=== PATIENT | male | born 1965 | race Caucasian/White ===

== ENCOUNTER 2017-07-29 19:49 | Inpatient (IN) ==
[2017-07-29] MEDS ORDERED: methylPREDNISolone SOD SUC 125 MG/2 ML VIAL ONE (20:04)
[2017-07-29] MEDS ORDERED: LORazepam 2 MG/1 ML VIAL ONE (20:04)
[2017-07-29] MEDS ORDERED: levETIRAcetam 500 MG/5 ML VIAL IV ONE (20:08)
[2017-07-29] MEDS ORDERED: LORazepam 2 MG/1 ML VIAL IV STA ×2 (20:08→20:20)
[2017-07-29] MEDS ORDERED: DIPH/TET/ACEL PERT BOOSTER VACCINE 0.5 ML VIAL IM ONE (20:08)
[2017-07-29] MEDS ORDERED: LACTATED RINGERS 500 ML IV STA (20:08)
[2017-07-29 20:25] LABS: Basophils # 0.1 10*3/uL (0.0-0.2); Basophils % 0.6 % (0.0-0.8); Eosinophils % 0.2 % (0.00-10.9); Hematocrit 40.9 VOL% (42.0-52.0); Hemoglobin 14.3 GM/DL (14.0-18.0); Immature Granulocytes % 1.4 %; Immature Granulocytes Absolute 0.12 #; Lymphocytes # 2.3 10*3/uL (1.4-4.0); Lymphocytes % 26.2 % (21.2-54.2); Mean Corpuscular Hemoglobin 30 PG (27-34); Mean Platelet Volume 9.7 FL (9.6-12.0); Monocytes # 0.4 10*3/uL (0.11-0.8); Monocytes % 4.1 % (1.7-12.7); Neutrophils # 5.9 10*3/uL (1.4-7.4); Neutrophils % 67.5 % (38.7-73.9); Platelet Count 294 T/CUMM (130-400); Red Blood Count 4.81 MC/CUMM (3.8-5.5); Red Cell Distribution Width 14.1 % (9.3-17.3); White Blood Count 8.7 T/CUMM (4-12)
[2017-07-29 20:32] LABS: PT Patient Result 10.2 SECS; Partial Thromboplastin Time 23.2 SECS (0-40)
[2017-07-29] MEDS ORDERED: methylPREDNISolone SOD SUC 125 MG/2 ML VIAL IV STA (20:35)
[2017-07-29 20:36] LABS: Albumin 4.3 G/DL (3.4-5.0); Bilirubin,Total 0.5 MG/DL (0.2-1.0); Calcium 8.9 MG/DL (8.5-10.1); Osmolality,Calculated 276.8 MOS/KG (273-304); Potassium 3.5 MMOL/L (3.5-5.1)
[2017-07-29] MEDS ORDERED: ceFAZolin 1,000 MG VIAL ONE (20:36)
[2017-07-29 20:38] LABS: Lactic Acid 2.8 MMOL/L (0.4-2.0)
[2017-07-29] MEDS ORDERED: HYDROmorphone 2 MG/1 ML VIAL ONE (20:55)
[2017-07-29 20:56] LABS: ABG Base Excess -0.1 MMOL/L (-2.5-2.5); ABG HCO3 23.8 MMOL/L (20-26); ABG Oxygen Saturation 97.6 % (95-100); ABG PCO2 36.4 MM HG (35-48); ABG PH 7.433 (7.35-7.45); ABG TCO2 24.9 MMOL/L (23-27); Allen Test Positive
[2017-07-29 21:21] LABS: Barbiturates Screen,Urine Negative (Negative); Benzodiazepines Screen,Urine Positive (Negative); Cannabinoid Screen,Urine Negative (Negative); Opiate Screen,Urine Negative (Negative); Phencyclidine Screen,Urine Negative (Negative)
[2017-07-29] MEDS ORDERED: HYDROmorphone 2 MG/1 ML VIAL IV STA (21:43)
[2017-07-29 22:18] LABS: Apearance,Urine CLEAR (Clear); Bilirubin,Urine Negative (Negative); Blood, Urine Moderate mg/dL (Negative); Glucose,Urine (UA) Negative (Negative); Ketones,Urine Negative (Negative); Mucus,Urine Occasional /LPF (Occasional); Nitrite,Urine Negative (Negative); Protein,Urine Negative; RBC,Urine 1 /HPF (0-4); Urine Color Straw (Yellow); Urine Urobilinogen < 2.0 EU/DL (0.2-1.0); WBC,Urine <1 /HPF (0-6)
[2017-07-29] MEDS ORDERED: HYDROmorphone 2 MG/1 ML VIAL IV PRN (23:12)
[2017-07-29] MEDS ORDERED: ACETAMINOPHEN 325 MG TABLET PO PRN (23:12)
[2017-07-29] MEDS ORDERED: ONDANSETRON 4 MG/2 ML VIAL IV PRN (23:12)
[2017-07-29] MEDS ORDERED: INFLUENZA VIRUS VACCINE 0.5 ML SYRINGE IM ONE (23:23)
[2017-07-29] MEDS: LACTATED RINGERS 1,000 ML IV SCH (23:28)
[2017-07-30] MEDS: oxyCODONE ER 20 MG TABLET PO SCH ×2 (00:30→13:10)
[2017-07-30] MEDS: ZALEPLON 5 MG CAPSULE PO SCH ×2 (00:30→21:52)
[2017-07-30] MEDS: ceFAZolin 1,000 MG in SYRINGE 1 EACH IV SCH ×3 (00:38→17:22)
[2017-07-30] MEDS ORDERED: LORazepam 2 MG/1 ML VIAL IV ONE (01:55)
[2017-07-30 07:50] LABS: Basophils % 0.1 % (0.0-0.8); Hematocrit 38.4 VOL% (42.0-52.0); Hemoglobin 13.7 GM/DL (14.0-18.0); Immature Granulocytes % 1.3 %; Immature Granulocytes Absolute 0.13 #; Lymphocytes # 0.9 10*3/uL (1.4-4.0); Lymphocytes % 8.8 % (21.2-54.2); Mean Corpuscular HGB Conc 35.7 GM/DL (32-36); Mean Corpuscular Hemoglobin 30 PG (27-34); Mean Corpuscular Volume 84.2 FL (87-102); Mean Platelet Volume 9.5 FL (9.6-12.0); Monocytes # 0.1 10*3/uL (0.11-0.8); Monocytes % 0.7 % (1.7-12.7); Neutrophils # 9.2 10*3/uL (1.4-7.4); Neutrophils % 89.1 % (38.7-73.9); Platelet Count 248 T/CUMM (130-400); Red Blood Count 4.56 MC/CUMM (3.8-5.5); Red Cell Distribution Width 14.3 % (9.3-17.3); White Blood Count 10.3 T/CUMM (4-12)
[2017-07-30] MEDS: LOSARTAN 50 MG TABLET PO SCH (08:03)
[2017-07-30] MEDS: CELECOXIB 200 MG CAPSULE PO SCH (08:03)
[2017-07-30] MEDS: DULoxetine 30 MG CAPSULE PO SCH (08:03)
[2017-07-30] MEDS: amLODIPine 10 MG TABLET PO SCH (08:03)
[2017-07-30] MEDS: hydroCHLOROthiazide 25 MG TABLET PO SCH (08:04)
[2017-07-30] MEDS: FAMOTIDINE 20 MG TABLET PO SCH (08:04)
[2017-07-30] MEDS: TAMSULOSIN 0.4 MG CAPSULE PO SCH (08:04)
[2017-07-30] MEDS: PREGABALIN 75 MG CAPSULE PO SCH (08:04)
[2017-07-30] MEDS: PANTOPRAZOLE 40 MG VIAL IV SCH (08:04)
[2017-07-30] MEDS: LACTATED RINGERS 1,000 ML IV SCH ×2 (08:08→17:23)
[2017-07-30 08:40] LABS: Albumin 3.7 G/DL (3.4-5.0); Bilirubin,Total 0.5 MG/DL (0.2-1.0); Calcium 9.3 MG/DL (8.5-10.1); Osmolality,Calculated 276.8 MOS/KG (273-304); Potassium 3.9 MMOL/L (3.5-5.1); Total Protein 6.5 G/DL (6.4-8.3)
[2017-07-30] MEDS ORDERED: ATORVASTATIN 40 MG TABLET PO SCH (21:00)
[2017-07-30] MEDS ORDERED: CETIRIZINE 10 MG TABLET PO SCH (21:00)
[2017-07-31] MEDS: oxyCODONE ER 20 MG TABLET PO SCH ×2 (00:50→12:55)
[2017-07-31] MEDS: ceFAZolin 1,000 MG in SYRINGE 1 EACH IV SCH ×2 (00:50→08:14)
[2017-07-31] MEDS: LACTATED RINGERS 1,000 ML IV SCH ×2 (03:34→08:13)
[2017-07-31] MEDS: DULoxetine 30 MG CAPSULE PO SCH (09:33)
[2017-07-31] MEDS: TAMSULOSIN 0.4 MG CAPSULE PO SCH (09:33)
[2017-07-31] MEDS: CELECOXIB 200 MG CAPSULE PO SCH (09:33)
[2017-07-31] MEDS: FAMOTIDINE 20 MG TABLET PO SCH (09:33)
[2017-07-31] MEDS: hydroCHLOROthiazide 25 MG TABLET PO SCH (09:33)
[2017-07-31] MEDS: amLODIPine 10 MG TABLET PO SCH (09:33)
[2017-07-31] MEDS: PREGABALIN 75 MG CAPSULE PO SCH (09:33)
[2017-07-31] MEDS: LOSARTAN 50 MG TABLET PO SCH (09:34)
[2017-07-31] MEDS: PANTOPRAZOLE 40 MG VIAL IV SCH (09:34)
[2017-07-31 13:09] VITALS: BP 153/75
== END 2017-07-31 14:02 | disposition home or self-care (01) | DRG 101 ==
LOC: EDUNIT# → EDBD → N.ED 19:49 → N.EDINP 21:52 → N.CC 22:52 → N.4E 07-30 09:46
PROVIDERS: ADMIT Surgery; ATTEND Surgery